=== PATIENT | female | born 1965 | race Caucasian/White ===

== ENCOUNTER 2017-05-21 14:36 | Emergency (ER) | payer OTHER ==
[~2017-05-21] VITALS: Ht 177.8 cm; Wt 128.1 kg
[2017-05-21] MEDS ORDERED: ALBUTEROL/IPRATROPIUM 2.5MG/0.5MG, 3 ML ONE (15:19)
[2017-05-21] MEDS ORDERED: ONDANSETRON 2MG/ML, 2ML ONE (15:28)
[2017-05-21] MEDS ORDERED: HYDROmorphone 2 MG/ML, 1ML ONE (15:28)
[2017-05-21] MEDS ORDERED: SODIUM CHLORIDE 0.9% 1,000ML IV ONE (15:30)
[2017-05-21] MEDS ORDERED: HYDROmorphone 1 MG/ML, 1ML IVPush PRN (15:30)
[2017-05-21] MEDS ORDERED: ONDANSETRON 2MG/ML, 2ML IVPush ONE (15:30)
[2017-05-21] MEDS ORDERED: SODIUM CHLORIDE FLUSH 10ML SYR IVF ONE (15:30)
[2017-05-21] MEDS ORDERED: ALBUTEROL/IPRATROPIUM 2.5MG/0.5MG, 3 ML NPPB ONE (15:30)
[2017-05-21 15:56] LABS: BASOPHILS # (AUTO) 0.03 x10^3/uL (0-0.1); BASOPHILS % (AUTO) 1 % (0-1); EOSINOPHILS # (AUTO) 0.06 x10^3/uL (0-0.4); EOSINOPHILS % (AUTO) 1 % (1-7); LYMPHOCYTES # (AUTO) 0.91 x10^3/uL (1-3.4); LYMPHOCYTES % (AUTO) 18 % (22-44); MD NO; MEAN CORPUSCULAR HEMOGLOBIN 30.1 pg (27.0-34.8); MEAN CORPUSCULAR HGB CONC 32.9 g/dL (32.4-35.8); MEAN CORPUSCULAR VOLUME 91.4 fL (80-100); MEAN PLATELET VOLUME 8.1 fL (7.4-10.4); MONOCYTES # (AUTO) 0.48 x10^3/uL (0.2-0.8); MONOCYTES % (AUTO) 10 % (2-9); NEUTROPHILS # (AUTO) 3.56 x10^3/uL (1.8-6.8); NEUTROPHILS % (AUTO) 71 % (42-75); PLATELET COUNT 268 x10^3/uL (130-400); RED BLOOD COUNT 4.24 x10^6/uL (3.82-5.3); RED CELL DISTRIBUTION WIDTH 14.9 % (9.6-15.2)
[2017-05-21 15:59] LABS: RAPID INFLUENZA A Negative (Negative); RAPID INFLUENZA B Negative (Negative)
[2017-05-21 16:03] LABS: ALBUMIN 3.3 g/dL (3.4-5.0); ANION GAP 8 mmol/L (5-15); CALCIUM 8.4 mg/dL (8.5-10.1); CHLORIDE 104 mmol/L (98-107); CREATININE 0.76 mg/dL (0.55-1.02)
[2017-05-21 16:49] LABS: MICROSCOPIC NOT IND
[2017-05-21 16:51] LABS: CULTURE INDICATED? NO
[2017-05-21] MEDS ORDERED: KETOROLAC 30 MG/1 ML ONE (17:25)
[2017-05-21] MEDS ORDERED: LIDOCAINE 1%, 2ML INFIL ONE (17:30)
[2017-05-21] MEDS ORDERED: KETOROLAC 30 MG/1 ML IVPush ONE (17:30)
[2017-05-21 18:04] VITALS: BP 123/65
== END 2017-05-21 18:31 | disposition home or self-care (01) ==
LOC: ED 18:25
DX: B34.9 Viral infection, unspecified (principal); Z90.49 Acquired absence of other specified parts of digestive tract; J45.909 Unspecified asthma, uncomplicated
CPT/HCPCS: 36415; 71045; 74176; 80048; 81003; 82040; 85025; 87400; 93005; 94640; 96361; 96374; 96375; 99285; J1170; J1885; J2405; J3490; J7030; J7620

== ENCOUNTER 2018-11-03 20:44 | Emergency (ER) | payer OTHER ==
[~2018-11-03] VITALS: Ht 179.1 cm; Wt 124.0 kg
[2018-11-03 20:48] VITALS: BP 135/79
[2018-11-03] MEDS ORDERED: HYDROmorphone 2 MG/ML, 1ML ONE (21:20)
[2018-11-03] MEDS ORDERED: KETOROLAC 30 MG/1 ML ONE (21:20)
[2018-11-03] MEDS ORDERED: HYDROmorphone 1 MG/ML, 1ML INJ IM PRN (21:30)
[2018-11-03] MEDS ORDERED: KETOROLAC 60 MG/2 ML IM ONE (21:30)
--- NOTE | 2018-11-03 21:49 | NUR ---
Break RN: back from Ultrasound. medicated for pain.
[2018-11-03] MEDS ORDERED: PROMETHAZINE 25 MG/ML, 1ML IM STA (22:08)
[2018-11-03] MEDS ORDERED: PROMETHAZINE 25 MG/ML, 1ML ONE (22:10)
[2018-11-03] MEDS ORDERED: ONDANSETRON ODT 4 MG PO ONE (22:30)
[2018-11-03] MEDS ORDERED: ONDANSETRON ODT 4 MG ONE (22:31)
--- NOTE | 2018-11-03 23:18 | NUR ---
Pt reports decreased nausea, fluids infusing, pt no longer dry heaving/vomiting.
[2018-11-03] MEDS ORDERED: SODIUM CHLORIDE 0.9% 1,000ML IVBOLUS ONE (23:30)
[2018-11-03] MEDS ORDERED: SODIUM CHLORIDE FLUSH 10ML SYR IVF ONE (23:30)
== END 2018-11-04 00:15 | disposition home or self-care (01) ==
LOC: ED 22:21
DX: S83.411A Sprain of medial collateral ligament of right knee, initial encounter (principal); S83.421A Sprain of lateral collateral ligament of right knee, initial encounter; G89.29 Other chronic pain; M25.561 Pain in right knee; M19.90 Unspecified osteoarthritis, unspecified site; X58.XXXA Exposure to other specified factors, initial encounter; Y93.89 Activity, other specified; Y92.89 Other specified places as the place of occurrence of the external cause; Y99.8 Other external cause status
CPT/HCPCS: 93971; 96372; 99284; J1170; J1885; J2550; J7030; Q0162